=== PATIENT | male | born 1995 | race Caucasian/White ===

== ENCOUNTER 2018-07-30 03:42 | Emergency (ER) | payer BC, SELFPAY ==
[2018-07-30 03:43] VITALS: BP 152/93; PULSE 56; RESP 24; TEMP 36.3; O2SAT 99; BMI 22.4
[2018-07-30] MEDS: Ondansetron 4 MG/2 ML Vial IV (03:53)
[2018-07-30] MEDS: Morphine 4 MG/ML Syringe IV (04:00)
[2018-07-30] MEDS: Ketorolac 30 MG/ML Syringe IV (04:00)
--- NOTE | 2018-07-30 04:50 | ED.VIS.GEN ---
History of Present Illness Chief Complaint: Flank Pain Informant: Patient Onset: Hours - 1-2 Context: Sudden Onset Timing: Continuous Quality: colicky ache Location: R flank Current Severity: Severe Maximum Severity: Severe Worsened by: nothing Relieved by: nothing Associated Symptoms: n/v Narrative: Feels like a prior kidney stone that he had, he spontaneously passed it. It was only the one time. Has seen a urologist in [place], where he is from. He is a college student here. No recent injury. No urinary symptoms or hematuria. No fevers. No prior surgeries. Prior similar symptoms: Yes - Past Medical History (1) Kidney stone Status: Chronic Past Medical History - Allergies and Home Meds Allergies/Adverse Reactions: Allergies No Known Allergies Allergy (Verified 07/30/18 03:42) Primary Care Physician: NOT,DEFINED [NON-STAFF] - Surgical History: no surgical history Smoking Status: Never smoker Drugs: None Review of Systems All systems negative except as indicated Gastrointestinal: Reports: Abdominal pain - radiating toward testicles, Nausea, Vomiting. Denies: Melena, Hematochezia Genitourinary: Denies: Dysuria, Hematuria, Frequency Musculoskeletal: Denies: Back pain Physical Exam Vital Signs/Narrative: Vital Signs Temp Pulse Resp BP Pulse Ox 07/30/18 03:43 97.4 F L 56 L 24 H 152/93 H 99 Inital Vital Signs reviewed: Yes General: Well nourished, Well developed, - - uncomfortable, nad Head: Normocephalic, Atraumatic Eyes: Perrl, EOMI ENT: Moist mucous membranes, No rhinorrhea Neck: Supple, Nontender Abdomen: Soft, Nondistended, Normal bowel sounds, Tender - mild throughout R side Back: Nontender, Normal Inspection. Negative for: CVA tenderness Extremities: Nontender, No edema Skin: Normal color, No rash Neurological: Alert, Oriented x3, Cranial nerves II-XII grossly intact, Normal Strength, Normal Sensation Psychological: Normal affect Diagnostic/Tx/Re-eval Clinical Impression(s) from Imaging Studies KUB X-Ray 07/30/18 04:10 IMPRESSION: Possible right sided distal ureteral calculus. Electronically Signed: Brooklynn Rodriguez MD at 4:31 EDT , Service support , - Medical Decision Making Patient much better after IV morphine, Zofran, Toradol. Ambulatory. Awaiting urine specimen. KUB shows suspicion of right UVJ stone around 3 mm, for which expectant management would be indicated, along with symptom control. Patient was observed in the ER for over 4 hours because he was drinking water and trying to make himself urinate. Eventually, he did so, it shows no signs of infection. His pain was well controlled without needing to re-dose. He did not pass the stone to his or our knowledge. He will be discharged home with instructions for expectant management and a prescription for some analgesics and urine strainers. ED Disposition - Plan for ED Patient: Disposition: Home or Assisted Living Chief Complaint: Flank Pain Diagnosis: Kidney stone, Renal colic on right side Instructions: ED Stone Renal W Colic Prescriptions: Hydrocodone Bitart/Apap 5-325 [[place] 5MG-325MG] 1 tab PO Q4H PRN PRN 2 Days #10 tab PRN Reason: Pain Referrals: [facility] [GROUP OF PHYSICIANS] - 3-5 Days if not improving
[2018-07-30 07:03] VITALS: RESP 12
[2018-07-30 07:24] LABS: Bacteria 0 SEEN /hpf (None Seen); Mucous, Urine 0 SEEN /hpf (<or=2+); Squamous Epithelial Cells - UA 0 SEEN /hpf (0-5); White Blood Cells 0 SEEN /hpf (0-5)
[2018-07-30 08:05] LABS: Color, Urine Yellow (Yellow); Glucose, Dipstick Normal (Normal); Ketone-Dipstick 15 mg/dl (Negative); Leukocyte Esterase-Dipstick Negative /ul (Negative); Nitrite-Dipstick Negative (Negative); Occult Blood-Urine 25 /ul (Negative); Protein-Dipstick Negative (Negative); Specific Gravity, Urine 1.005 (1.002-1.030); Urine Bilirubin Dipstick Negative (Negative); Urine Clarity Clear (Clear); Urine Urobilinogen Normal (Normal)
[2018-07-30 08:11] LABS: Red Blood Cells-Urine 0-5 SEEN /hpf (0-5)
== END 2018-07-30 08:52 | disposition home or self-care (01) ==
PROVIDERS: Emergency Provider Emergency Medicine
DX: N20.0 Calculus of kidney (principal); Z87.442 Personal history of urinary calculi
CPT/HCPCS: 74018; 81001; 96374; 96375; 99283; A4216; J2405

== ENCOUNTER 2018-07-31 19:47 | Emergency (ER) | payer BC, SELFPAY ==
[2018-07-31 19:48] VITALS: BP 128/64; PULSE 73; RESP 16; TEMP 36.7; O2SAT 98; BMI 21.9
[2018-07-31 20:56] LABS: Bacteria 0 SEEN /hpf (None Seen); Mucous, Urine 0 SEEN /hpf (<or=2+); Squamous Epithelial Cells - UA 0 SEEN /hpf (0-5); White Blood Cells 0 SEEN /hpf (0-5)
[2018-07-31 21:00] LABS: Color, Urine Yellow (Yellow); Glucose, Dipstick Normal (Normal); Ketone-Dipstick 15 mg/dl (Negative); Leukocyte Esterase-Dipstick Negative /ul (Negative); Nitrite-Dipstick Negative (Negative); Occult Blood-Urine 250 /ul (Negative); Protein-Dipstick Negative (Negative); Specific Gravity, Urine 1.005 (1.002-1.030); Urine Bilirubin Dipstick Negative (Negative); Urine Clarity Sl. Cloudy (Clear); Urine Urobilinogen Normal (Normal); Urine pH 6.5 (5.0 - 8.0)
[2018-07-31 21:13] LABS: Red Blood Cells-Urine 0-5 SEEN /hpf (0-5)
[2018-07-31] MEDS: 0.9% Normal Saline 1,000 ML 999 ML IV (21:36)
[2018-07-31] MEDS: Morphine 4 MG/ML Syringe IV (21:37)
[2018-07-31] MEDS: Ketorolac 30 MG/ML Syringe IV (21:37)
--- NOTE | 2018-07-31 22:00 | ED.DCSUM_ITS ---
- ER Visit Summary Date of Service: 07/31/18 Chief Complaint: Right flank pain History of Present Illness: The patient is a 22 M who has right flank pain. He was diagnosed with a kidney stone yesterday. He took [place] at home but it did not help. He was diagnosed with a 3 mm right UVJ stone. He denies any fevers or changes with his pain. Physical Examination: Vital signs reviewed. HEENT exam unremarkable. Heart is regular rate and rhythm without murmurs. Lungs are clear to auscultation. Abdomen is soft and nontender. Extremities reveal no edema. Skin exam normal. Neurologic exam normal. Test Results: UA reveals a slight amount of blood. No infection Emergency Department Course and Treatment: Patient was given IV saline, Toradol and morphine. He feels better. I will add naproxen to his medication regimen. He will follow-up with his PCP Treatment Plan: [] Disposition: Discharge Impression: Ureterolithiasis This note was generated with [employer] dictation software. It may contain incorrect words, spelling, and punctuation that were not noted in review of the chart prior to signing ED Disposition - Plan for ED Patient: Disposition: Home or Assisted Living Chief Complaint: Flank Pain Instructions: ED Stone Renal W Colic Prescriptions: Naproxen [Naprosyn] 500 mg PO BID PRN #20 tab Referrals: Care Physician,No Primary [Primary Care Provider] -
[2018-07-31 22:15] VITALS: BP 118/67; PULSE 70; RESP 16; O2SAT 100
== END 2018-07-31 22:16 | disposition home or self-care (01) ==
PROVIDERS: Emergency Provider Emergency Medicine
DX: N20.1 Calculus of ureter (principal); F90.9 Attention-deficit hyperactivity disorder, unspecified type; Z79.899 Other long term (current) drug therapy
CPT/HCPCS: 81001; 96361; 96374; 96375; 99284; J7030